=== PATIENT | male | born 1990 | race African-American/Black ===

== ENCOUNTER 2016-04-24 19:08 | Emergency (ER) | payer OTHER ==
[~2016-04-24] VITALS: Ht 167.6 cm; Wt 65.8 kg
[2016-04-24] MEDS ORDERED: NOHOMEMEDICATIONS (19:24)
[2016-04-24 20:17] LABS: HEMATOCRIT 46.7 % (42.0-52.0); HEMOGLOBIN 15.8 gm/dL (14.0-18.0); MCHC 33.8 % (28.0-37.0); MCV 91.6 fL (80.0-100.0); RDW 14.5 % (10.5-14.5); WBC 5.6 thou/uL (4.0-11.0)
[2016-04-24 20:21] LABS: MANUAL DIFF YES
[2016-04-24 20:22] LABS: ANION GAP 10 mmol/L (7-16); BUN 9 mg/dL (7-18); CALCIUM 8.9 mg/dL (8.5-10.1); CHLORIDE 103 mmol/L (98-107); CO2 28 mmol/L (21-32); GLUCOSE 91 mg/dL (70-99); POTASSIUM 3.4 mmol/L (3.5-5.1); SODIUM 141 mmol/L (136-145)
[2016-04-24 20:27] LABS: ACETAMINOPHEN < 2 ug/mL (10-30); SALICYLATE 7.1 mg/dL (2.8-20.0)
[2016-04-24 20:44] LABS: ABSOLUTE NEUTROPHILS 4.2 thou/uL (1.4-8.2); ANISOCYTOSIS 1+; TOTAL CELL COUNT 100
[2016-04-24 20:45] LABS: LARGE PLATELETS OCCASIONAL; POIKILOCYTOSIS SLIGHT; POLYCHROMASIA OCCASIONAL
[2016-04-24 20:45] LABS: AMP/METHAMP POSITIVE (Negative); BARBITURATES Negative (Negative); BENZODIAZEPINES Negative (Negative); COCAINE Negative (Negative); METHADONE Negative (Negative); OPIATES Negative (Negative); PCP Negative (Negative); THC POSITIVE (Negative)
[2016-04-24 20:46] LABS: PLATELET COUNT 85 thou/uL (150-400)
[2016-04-24 21:55] VITALS: BP 140/80
== END 2016-04-24 22:02 | disposition home or self-care (01) ==
LOC: ER 19:08
PROVIDERS: Physician Assistant
DX: F32.9 Major depressive disorder, single episode, unspecified (principal); F12.10 Cannabis abuse, uncomplicated; F15.10 Other stimulant abuse, uncomplicated; F17.210 Nicotine dependence, cigarettes, uncomplicated